=== PATIENT | male | born 1975 | race Caucasian/White ===

== ENCOUNTER 2018-10-11 08:56 | Emergency (ER) | payer MEDICAID ==
[~2018-10-11] VITALS: Ht 177.8 cm; Wt 72.1 kg
[2018-10-11 08:56] VITALS: BP 112/70
--- NOTE | 2018-10-11 09:30 | NUR ---
RADIOLOGY AT BEDSIDE FOR EVAL.
== END 2018-10-11 10:17 | disposition home or self-care (01) ==
LOC: ER 09:04
DX: J20.9 Acute bronchitis, unspecified (principal)
CPT/HCPCS: 71045; 87804 ×2; 99284; A4606; 87400